=== PATIENT | male | born 2000 | race Caucasian/White ===

== ENCOUNTER 2019-03-28 22:17 | Inpatient (IN) ==
[2019-03-28] MEDS ORDERED: HYDROmorphone INJ 0.5 MG/0.5 ML SYR IV STA (22:31)
[2019-03-28] MEDS ORDERED: HYDROmorphone INJ 0.5 MG/0.5 ML SYR ONE (22:32)
[2019-03-28] MEDS ORDERED: PROPOFOL IV EMULSION 10 MG/ML 20 ML VIAL IV ONE (22:36)
[2019-03-28] MEDS ORDERED: KETAMINE HCL INJ 50 MG/ML 10 ML VIAL ONE (22:37)
[2019-03-28] MEDS ORDERED: KETAMINE HCL INJ 50 MG/ML 10 ML VIAL IV STA (22:37)
[2019-03-28] MEDS ORDERED: ONDANSETRON INJ 2 MG/ML 2 ML VIAL IV STA (22:37)
[2019-03-28] MEDS ORDERED: PROPOFOL IV EMULSION 10 MG/ML 20 ML VIAL IV STA (22:37)
--- NOTE | 2019-03-28 22:37 | Emergency Department Note ---
Pre Sedation Assessment Vital Signs Temp Pulse Resp BP Pulse Ox 03/28/19 22:25 37.4 C 83 18 135/92 97 Pre-Sedation Airway Assessment Smoking Status: Never smoker Notes The planned sedation has been discussed with the patient. Informed Consent was obtained. I have identified the patient, determined the appropriateness of sedation and have assessed the patient immediately prior to the procedure. All medicine(s) and interventions are by my order.
[2019-03-28 22:50] LABS: Basophils # (auto) 0.01 K/uL (0-0.2); Basophils % (auto) 0.1 %; Eosinophils # (auto) 0.04 K/uL (0-0.5); Eosinophils % (auto) 0.3 %; Hematocrit (blood only) 42.5 % (42-52); Hemoglobin 14.7 g/dL (14.0-18.0); Immature Granulocytes # (auto) 0.01 K/uL (0.00-0.02); Immature Granulocytes % (auto) 0.1 %; Lymphocytes # (auto) 2.01 K/uL (1.2-3.4); Lymphocytes % (auto) 16.5 %; Mean Corpuscular Hemoglobin 28.9 pg (25-34); Mean Corpuscular Hgb Conc 34.6 g/dL (32-36); Mean Corpuscular Volume 83.7 fL (80-100); Mean Platelet Volume 10.5 fL (7.4-10.4); Monocytes # (auto) 0.81 K/uL (0.11-0.59); Monocytes % (auto) 6.7 %; Neutrophils # (auto) 9.27 K/uL (1.4-6.5); Neutrophils % (auto) 76.3 %; Platelet Count 221 K/uL (130-400); RDW Coefficient of Variation 11.9 % (11.5-14.5); RDW Standard Deviation 36.6 fL (36.4-46.3); Red Blood Count 5.08 M/uL (4.7-6.1); White Blood Count 12.15 K/uL (4.8-10.8)
--- NOTE | 2019-03-28 22:57 | XRay Report ---
XR tibia fibula RT 2V CLINICAL HISTORY: Right leg pain status post trauma. COMPARISON: None. DISCUSSION: There is an acute transverse fracture of the tibia at the junction of the middle and dist al one third. The distal fragment is laterally displaced by one full shaft width. There is associated fracture of the fibula at the junction of middle and distal one third. The distal fragment is latera lly displaced by one full shaft width. On the lateral view, there is one half of the shaft width of p osterior displacement at the fracture sites. IMPRESSION: Displaced fractures of the tibia and fibula at the junction of the middle and distal one third. Electronically signed by: Paulino Dowd M.D. 03/28/2019 10:56 PM
[2019-03-28 23:01] LABS: INR 1.1 (0.9-1.1); Partial Thromboplastin Ratio 0.9; Partial Thromboplastin Time 23.4 Seconds (21.0-31.0); Prothrombin Time 11.6 Seconds (9.0-12.0)
[2019-03-28 23:08] LABS: BUN Creatinine Ratio 13.2 (10-20); Calcium 9.1 mg/dl (8.5-10.1); Creatinine Clr Calc Pharmacy 98.5 ml/min; Potassium 3.3 mmol/L (3.5-5.1)
--- NOTE | 2019-03-28 23:21 | History & Physical Report ---
Date of Service March 28, 2019 Assessment & Plan (1) Tibia/fibula fracture, shaft: Patient will be admitted for care. We will provide pain control as well as monitor for compartment syndromes. He has been splinted, After his closed reduction, while under conscious sedation. Surgical intervention recommended for stabilization of the fracture. His family is present today and agree to proceed with surgery. Risks and complications of the procedure were expanded the patient and include but not limited to infection, pain, bleeding, scarring, nerve and blood vessel damage, wound problems, weakness, stiffness, incomplete relief of symptoms, tendon or ligament injury, hardware failure, malunion, nonunion, arthritis, blood clots, embolism, heart attack, stroke and . Informed consent was obtained by Dr. Parry. He does not need any preoperative lab work or medical clearance prior to surgery. Plans for surgery tomorrow morning. He will then be discharged home when he is comfortable with pain control and safe out of bed with physical therapy. All questions were answered.He will be n.p.o. after midnight. I, Dr. Parry, saw and examined the patient and agree with the above findings and plan of care which was discussed with my PA. 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 Is a collision with another player and had immediate right lower leg pain. He was unable to get up and weight- bear. He was evaluated and concerns for right tib-fib fracture. Was brought to the emergency room. X-rays were taken he was found to have a displaced right tib-fib fracture. He was seen and evaluated by Dr. Parry. Surgical intervention was recommended. He had conscious sedation here in the emergency room and performed. A splint was applied under conscious sedation. He agrees to proceed with surgery and will be admitted overnight for pain control and monitoring for compartment syndrome. Allergies Allergy/AdvReac Type Severity Reaction Status Date / Time No Known Allergies Allergy Verified 03/28/19 22:31 Home Medications Home Medications Medication Instructions Recorded Confirmed Type No Known Home Medications 03/28/19 03/28/19 History Past Med/Surg History Social History Feels Safe at Home: Yes Smoking Status: Never smoker Hx Substance Use: No Review of Systems Review of Systems: All systems reviewed & are unremarkable except as noted in HPI & below Describes pain in his right lower extremity. Visible deformity. Denies any other injuries. Denies any numbness or tingling. Physical Exam Constitutional: WD/WN, vitals as above Eyes: PERRL, conjunctivae normal, anicteric sclerae ENMT: external ear and nose normal, oropharynx normal Neck: normal visual inspection Respiratory: normal respiratory effort, lungs clear to auscultation Cardiovascular: RRR, no murmur, no edema Heart Sounds: normal S1 and normal S2; no murmur Palpation: normal PMI Vessels: posterior tibial pulses present and dorsalis pedis pulses present Extremities: normal capillary refill Gastrointestinal (Abdomen): Inspection/Auscultation: abdomen normal to inspection and normal bowel sounds Percussion/Palpation: abdomen soft; abdomen nontender Musculoskeletal: Exam of his right lower extremity: Positive deformity right lower extremity. Skin intact. Moves toes well. Distal pulses and sensation normal. No effusion right knee, right thigh nontender, tolerates gentle log rolling of right hip. No other ROM attempted to due fracture and pain. Skin: no rashes, warm and dry Psychiatric: A+Ox3, euthymic affect Speech: normal rate/rhythm/volume of sp eech Results & Data Vital Signs (Past 12 Hours) Vital Signs Temp Pulse Pulse Resp BP BP Pulse Ox 03/28/19 23:02 81 18 140/97 03/28/19 22:58 75 22 165/92 H 100 03/28/19 22:55 70 16 160/97 H 03/28/19 22:50 70 20 148/98 H 03/28/19 22:45 93 H 20 127/103 H 03/28/19 22:25 37.4 C 83 18 135/92 97 Diagnostic Findings XR tibia fibula RT 2V CLINICAL HISTORY: Right leg pain status post trauma. COMPARISON: None. DISCUSSION: There is an acute transverse fracture of the tibia at the junction of the middle and distal one third. The distal fragment is laterally displaced by one full shaft width. There is associated fracture of the fibula at the junction of middle and distal one third. The distal fragment is laterally displaced by one full shaft width. On the lateral view, there is one half of the shaft width of posterior displacement at the fracture sites. IMPRESSION: Displaced fractures of the tibia and fibula at the junction of the middle and distal one third. Post reduction films: showed improved alignment of the right transverse tibial shaft fracture and the comminuted fibular shaft fracture in the AP and lateral views. Splint in place.
[2019-03-28] MEDS ORDERED: METOCLOPRAMIDE HCL INJ 5 MG/ML 2 ML VIAL IV PRN (23:23)
[2019-03-28] MEDS ORDERED: ONDANSETRON INJ 2 MG/ML 2 ML VIAL IV PRN (23:23)
--- NOTE | 2019-03-29 00:12 | Operative Report ---
Post Operative Report Pre & Post Diagnosis Closed Right Tib-fib fractures Procedure Closed reduction Right Tib Fib. 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 The risks and benefits of closed reduction vs splinting as is were discussed. Wished to proceed with closed reduction and informed consent was signed.. Description of Procedure After performing a time-out and adequate sedation was administered a closed reduction was performed with traction-counter traction and gentle manipulation. Once the reduction was felt to be made, a well padded AO splint was applied while maintaining the reduction. Post reduction films showed near anatomic reduction. After further discussion with the team physician, it was decided to admit the patient and plan for ORIF here tomorrow, rather than transporting home on the bus and having surgery in [place]. I attest to the content of the Intraoperative Record and any orders documented therein. Any exceptions are noted below.
[2019-03-29] MEDS: HYDROmorphone INJ 0.5 MG/0.5 ML SYR IV PRN ×6 (00:15→10:25)
--- NOTE | 2019-03-29 00:35 | Emergency Department Note ---
Post Sedation Assessment Vital Signs Temp Pulse Pulse Resp BP BP Pulse Ox 03/28/19 23:15 92 H 20 152/81 H 100 03/28/19 23:00 81 18 140/97 100 03/28/19 22:58 75 22 165/92 H 100 03/28/19 22:55 70 16 160/97 H 100 03/28/19 22:50 70 20 148/98 H 100 03/28/19 22:45 93 H 20 127/103 H 100 03/28/19 22:25 37.4 C 83 18 135/92 97 Recovery Score Activity: Moves 4 extremities Respiration: Deep Breath/Cough Circulation: +/-20% PreAnes Value Consciousness: Fully Awake Oxygen Saturation: > 92% On Room Air Post Anesthesia Score: 10 Post Sedation Plan On clinical assessment, the patient appears to have tolerated the sedation without complications. Patient is recovering as anticipated. Patient will continue to be monitored by nursing and may be discharged when sedation discharge criteria are met per below protocol. Upon Completions of procedure and additional 15 minutes continue every 5 minute vital signs and the P.A.R. score; then discharge to a Phase I or Fast Track to Phase II per the following guidelines: * Discharge Patient to appropriate Phase II area if PAR is 8 or greater or return to pre- procedure baseline. The post - procedure orders will be as directed. * If PAR score is less than 8 or not return to pre-procedure baseline then patient will follow Phase I monitoring till PAR is reached for Phase II. The Phase I may be done in procedure room or may call to secure a Phase I area. * If naloxone or flumazenil are used for reversal, hold in Phase I for continued monitoring from when last reversal dose was given for a minimum of 60 minutes or longer pending the nurse and/or physician discretion of patient condition before discharge to Phase II. Please call the Sedation Physician to re-evaluate and complete post-note for discharge to Phase II area. Do NOT discharge from procedure sedation or Phase 1 until post- sedation evaluation note is complete by procedure /sedation MD Sedation Discharge Instructions to be given to the patient at discharge to home. Sedation Data Sedation Times Sedation Start Date: 03/28/19 Sedation Start Time: 22:45 Sedation End Date: 03/28/19 Sedation End Time: 23:00 Total Sedation Time: 15 Procedure Times Procedure End Time: 22:58
--- NOTE | 2019-03-29 00:56 | Emergency Department Note ---
Entered by Jodi Aguirre acting as a scribe for History of Present Illness General Chief complaint: Ankle Pain Stated complaint: LEG INJURY Time Seen by Provider: 03/28/19 22:20 Source: patient and EMS History of Present Illness Provider complaint: lower extremity pain Onset (ago): minute(s) (prior to arrival) Location: lower extremity and right Pain Consistency: + constant Maximum Pain Intensity: 4 Quality: + other (lower extremity pain ) Relieved By: + medication Associated symptoms: + other (Negative neck pain; negative back pian; negative chest pain; negative abdominal pain; ); no chest pain The patient, who is a 19 year old male with no significant medical history, presents to the Emergency Room with complaints of a constant right lower extremity pain that occurred prior to arrival. EMS states that the patient was kicking during a football game when he landed "awkwardly" on his leg. The patient states that he is able to feel his toes. The patient denies headache, neck pain, back pain, chest pain or abdominal pain. The patient reports that he drank and ate waffles at half time. The patient denies any past surgical history. The patient expresses that he had laughing gas once when he was younger and had no complications with it. He was given IV fentanyl prior to arrival which improved his pain. Home Medications Home Medications Medication Instructions Recorded Confirmed Type No Known Home Medications 03/28/19 03/28/19 History Allergies Allergy/AdvReac Type Severity Reaction Status Date / Time No Known Allergies Allergy Verified 03/28/19 22:31 Past Med/Surg History Medical History No significant past medical history Social History Preferred Language: Hungarian Communication Ability: Effective Barrel Lathe Operator Required: No Beliefs That Will Affect Care: Scientology Scientology Beliefs: Druze Current Living Situation: Other Current Living Situation Comment: Patient lives on campus at [place] Other Information That Helps Us Care for You: No Feels Safe at Home: Yes Safety Concerns: Feels Safe At This Time Smoking Status: Never smoker Hx Alcohol Use: No Hx Substance Use: No Review of Systems See HPI for pertinent positives & negatives. and A total of 10 systems reviewed and were otherwise negative Physical Exam Vital Signs Vital Signs - 24 hr 03/28/19 22:25 03/28/19 22:45 03/28/19 22:50 Temperature 37.4 C Temperature Source Oral Sepsis Recent Fever Within 48 Hours No Sepsis Action Taken by Nursing No Action Required End-Tidal CO2 End Tidal CO2 (18-54mmHg) 22 26 Pulse Rate 83 93 H 70 Pulse Rate [Apical] Respiratory Rate 18 20 20 Respiratory Effort / Characteristics Non-Labored Spontaneous Non-Labored Spontaneous Non-Labored Spontaneous Respiratory Depth Normal Normal Normal Blood Pressure 135/92 Blood Pressure [Left Arm] 127/103 H 148/98 H Blood Pressure Mean 106 Blood Pressure Mean [Left Arm] Pulse Oximetry 97 100 100 Oxygen Delivery Method Room Air Non-rebreather Non-rebreather Oxygen Flow Rate 15 15 03/28/19 22:55 03/28/19 22:58 03/28/19 23:00 Temperature Temperature Source Sepsis Recent Fever Within 48 Hours Sepsis Action Taken by Nursing End-Tidal CO2 26 End Tidal CO2 (18-54mmHg) 38 32 Pulse Rate 70 75 Pulse Rate [Apical] 81 Respiratory Rate 16 22 18 Respiratory Effort / Characteristics Non-Labored Spontaneous Non-Labored Spontaneous Non-Labored Spontaneous Respiratory Depth Normal Normal Normal Blood Pressure Blood Pressure [Left Arm] 160/97 H 165/92 H 140/97 Blood Pressure Mean Blood Pressure Mean [Left Arm] 111 Pulse Oximetry 100 100 100 Oxygen Delivery Method Non-rebreather Non-rebreather Nasal Cannula Oxygen Flow Rate 15 15 4 03/28/19 23:15 Temperature Temperature Source Sepsis Recent Fever Within 48 Hours Sepsis Action Taken by Nursing End-Tidal CO2 18 End Tidal CO2 (18-54mmHg) Pulse Rate Pulse Rate [Apical] 92 H Respiratory Rate 20 Respiratory Effort / Characteristics Non-Labored Spontaneous Respiratory Depth Normal Blood Pressure Blood Pressure [Left Arm] 152/81 H Blood Pressure Mean Blood Pressure Mean [Left Arm] 104 Pulse Oximetry 100 Oxygen Delivery Method Room Air Oxygen Flow Rate Constitutional: Vital signs reviewed. Eyes: Pupils are equal round reactive to light. Conjunctiva are noninjected. ENT: Pharynx is clear without erythema or exudate. Mucous membranes are moist. Neck supple without meningeal signs. Respiratory: Clear to auscultation bilaterally. Breath sounds are equal bilaterally. Cardiovascular: Regular rate and rhythm. No rubs or gallops. GI: Soft, nondistended and nontender. Bowel sounds are present. Musculoskeletal: No peripheral edema. No midline tenderness to the cervical spine. Tenderness and swelling to the mid tibia. NVI distally. No hip tenderness. Integumentary: No cyanosis. Neurological: The patient is awake and alert. No focal deficits. Psychiatric: Tearful and anxious. Normal affect. Procedures Free Text Procedures Preparation for the sedation procedure included: blood tester, IV access, pulse oxymetry, ETCO2 monitor, oxygen, suction and ambu bag. Sedation was accomplished using Propofol 125mg and Ketamine 50mg IV. I provided anesthesia care for this patient for 15 minutes. Sql Data Analyst/Contact Lens Polisher: Dr. Georgette MD. Complication(s) during the procedure: None Mental status post procedure: Response to verbal stimuli - Appropriate Disposition See nurses record for monitoring/vital signs Alert prior to discharge Course 2220: Past medical records reviewed. The patient was evaluated in room B1. A complete history and physical exam was performed. 2243: I obtained inform consent from the patient for conscious sedation. The understands the risk of aspiration given he recently ate and drank. 2257: I put the patient under conscious sedation. 2317: I reviewed the patient's case with Dr. Adkins, [facility] Orthopedics. He will e valuate the patient for further management. 2334: I reassessed the patient who is awake and alert. His pain is controllable. Consultations Consultation #1: I reviewed the patient's case with Dr. Adkins, [facility] Orthopedics. He will evaluate the patient for further management. Time: 23:17 Administered Medications Hydromorphone HCl (Dilaudid) 0.5 - 1 mg IV Q2H PRN PRN Reason: Pain Stop: 04/11/19 23:27 Last Admin: 03/29/19 00:15 Dose: 0.5 mg Documented by: [id number] Discontinued Medications Hydromorphone HCl (Dilaudid) 0.5 mg IV NOW STA Stop: 03/28/19 22:32 Last Admin: 03/28/19 22:35 Dose: 0.5 mg Documented by: [id number] Hydromorphone HCl (Dilaudid) Confirm Administered Dose 0.5 mg .ROUTE .STK-MED ONE Stop: 03/28/19 22:33 Last Admin: 03/28/19 22:35 Dose: Not Given Documented by: [id number] Ketamine HCl (Ketalar Steri-Vial) Confirm Administered Dose 500 mg .ROUTE .STK- MED ONE Stop: 03/28/19 22:38 Last Admin: 03/28/19 23:22 Dose: Not Given Documented by: [id number] Ketamine HCl (Ketalar Steri-Vial) 50 mg IV NOW STA Stop: 03/28/19 22:38 Last Admin: 03/28/19 23:22 Dose: 50 mg Documented by: [id number] Ondansetron HCl (Zofran) 4 mg IV NOW STA Stop: 03/28/19 22:38 Last Admin: 03/29/19 00:31 Dose: Not Given Documented by: [id number] Propofol (Diprivan) Confirm Administered Dose 400 mg IV .STK-MED ONE Stop: 03/28/19 22:37 Last Admin: 03/28/19 23:22 Dose: 125 mg Documented by: [id number] Cosigned by: [id number] Propofol (Diprivan) 50 mg IV NOW STA Stop: 03/28/19 22:38 Last Admin: 03/28/19 23:22 Dose: Not Given Documented by: [id number] Medical Decision Making Differential Diagnosis Differential diagnosis includes: tibia fracture, fibular fracture, ankle dislocation, strain, contusion as well as others were concerned Medical Records Attestation: I reviewed the patient's medical records. The patient has no past medical records. Home Medications Current Medication List: was personally reviewed by me Laboratory Data Attestation: I reviewed the patient's lab results. Result diagrams: 03/28/19 22:30 03/28/19 22:30 Lab Results 03/28/19 03/28/19 03/28/19 Range/Units 22:30 22:30 22:30 WBC 12.15 H (4.8-10.8) K/uL RBC 5.08 (4.7-6.1) M/uL Hgb 14.7 (14.0-18.0) g/dL Hct 42.5 (42-52) % MCV 83.7 (80-100) fL MCH 28.9 (25-34) pg MCHC 34.6 (32-36) g/dL RDW Std Deviation 36.6 (36.4-46.3) fL RDW Coeff of Desiree 11.9 (11.5-14.5) % Plt Count 221 (130-400) K/uL MPV 10.5 H (7.4-10.4) fL Immature Gran % (Auto) 0.1 % Neut % (Auto) 76.3 % Lymph % (Auto) 16.5 % [place] % (Auto) 6.7 % Eos % (Auto) 0.3 % Baso % (Auto) 0.1 % Immature Gran # (Auto) 0.01 (0.00-0.02) K/uL Neut # (Auto) 9.27 H (1.4-6.5) K/uL Lymph # (Auto) 2.01 (1.2-3.4) K/uL [place] # (Auto) 0.81 H (0.11-0.59) K/uL Eos # (Auto) 0.04 (0-0.5) K/uL Baso # (Auto) 0.01 (0-0.2) K/uL PT 11.6 (9.0-12.0) Seconds INR 1.1 (0.9-1.1) APTT 23.4 (21.0-31.0) Seconds PTT Ratio 0.9 Sodium 140 (136-145) mmol/L Potassium 3.3 L (3.5-5.1) mmol/L Chloride 107 (98-107) mmol/L Carbon Dioxide 27 (21-32) mmol/L Anion Gap 5.0 (3-11) BUN 18 (7-18) mg/dl Creatinine 1.35 (0.6-1.4) mg/dl Est Cr Clr Drug Dosing 98.5 ml/min Est GFR ( Amer) 87.0 Est GFR (Non-Af Amer) 75.0 BUN/Creatinine Ratio 13.2 (10-20) Glucose 92 (70-99) mg/dl Calcium 9.1 (8.5-10.1) mg/dl Imaging Data Radiologist's Impression: Radiology results as stated below per my review and the radiologist's interpretation: XR tibia fibula RT 2V CLINICAL HISTORY: Right leg pain status post trauma. COMPARISON: None. DISCUSSION: There is an acute transverse fracture of the tibia at the junction of the middle and distal one third. The distal fragment is laterally displaced by one full shaft width. There is associated fracture of the fibula at the junction of middle and distal one third. The distal fragment is laterally displaced by one full shaft width. On the lateral view, there is one half of the shaft width of posterior displacement at the fracture sites. IMPRESSION: Displaced fractures of the tibia and fibula at the junction of the middle and distal one third. Electronically signed by: Paulino Dowd M.D. 03/28/2019 10:56 PM Blood Pressure Blood Pressure Findings: Normal blood pressure MDM Narrative I did evaluate the patient as noted above.The patient is visiting from [place] for a football game. 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 He denies any other significant injury. He appears to have a closed tib-fib fracture on examination. He is neurovascularly intact. The patient was placed on a continuous blood tester. I did treat him with IV Dilaudid 0.5 mg. I did order and personally reviewed the images of the patient's tib-fib x-ray as described above. He has a displaced right tib- fib fracture. I did order and review the patient's blood work as noted in the electronic medical record. His white count is elevated which is a nonspecific finding and likely secondary to the stress of the trauma. He has mild hypokalemia. Dr. Parry of orthopedics did see the patient with me concurrently. He wished to perform fracture reduction under conscious sedation. I did provide conscious sedation as noted above. I did obtained informed consent from the patient as well as his parents. He has not been n.p.o. for a significant amount of time but due to the emergent nature of the accident we went ahead with conscious sedation with the patient and parents understanding the risks of aspiration. The procedure was performed as noted above and postreduction x-ray shows significantly improved anatomic alignment per my interpretation. The patient was hospitalized by Dr. Parry for operative treatment. Impression & Plan Tibia/fibula fracture, shaft, Fall, Acute hypokalemia Discharge Plan Visit Data *Final* Discharge Date/Time: 03/29/19 00:15 Chief Complaint: Ankle Pain Stated Complaint: LEG INJURY ED Provider: Elias Palomino Discharge Problem: Tibia/fibula fracture, shaft, Fall, Acute hypokalemia Patient Disposition: Admitted As Inpatient Discharge Instructions Interventions: ED Discharge Assessment Last Done: 03/29/19 00:15 Discharge Problem: Tibia/fibula fracture, shaft Qualifiers: Encounter type: initial encounter Fracture type: closed Laterality: right Qualified Code(s): S82.201A - Unspecified fracture of shaft of right tibia, initial encounter for closed fracture Fall Qualifiers: Encounter type: initial encounter Qualified Code(s): W19.XXXA - Unspecified fall, initial encounter The scribe's documentation has been prepared under my direction and personally reviewed by me in its entirety. I confirm that the note above accurately reflects all work, treatment, procedures, and medical decision making performed by me.
[2019-03-29] MEDS: D5W AND 1/2NSS 1,000 ML IV SCH ×2 (01:10→16:26)
[2019-03-29] MEDS ORDERED: CEFAZOLIN 2000MG 2,000 MG/15 ML SYR IV SCH (06:00)
--- NOTE | 2019-03-29 07:49 | XRay Report ---
RIGHT ANKLE 2 VIEWS CLINICAL HISTORY: Postreduction examination. FINDINGS: AP and crosstable lateral views of the right ankle are obtained. Correlation is made with r adiographs performed earlier the same day 03/28/2019. The examination is performed through a cast, obsc uring fine bony detail. Again seen are horizontally oriented fractures through the mid to distal shaf t of the right tibia and fibula. Alignment is significantly improved status post closed reduction. Th ere is 9 mm of lateral offset of the distal tibial fragment. There is mild offset and overriding of t he fibular fragments. Overlying soft tissue edema is noted. The ankle joint appears intact. IMPRESSION: Improved alignment of tibial and fibular shaft fractures status post closed reduction. e above. Electronically signed by: Jr Godoy M.D. 03/29/2019 7:47 AM
--- NOTE | 2019-03-29 07:57 | Orthopedic Progress Note ---
Date of Service March 29, 2019 Assessment & Plan (1) Tibia/fibula fracture, shaft: Admitted late last night, Right Tib-fib fracture, doing as well as expected. NWB. NPO. Continue pain control. TEDs & foot pumps to LLE. Ice RLE. On the add-on list for planned ORIF Right Tib-fib later today. Subjective Right lower leg pain Review of Systems Review of Systems: No increase in pain or tingling. Physical Exam Physical Exam: RLE: Splint is intact. BCR<2 sec. Wiggling toes and able to extend big toe. Sensation to light touch remains slightly diminished. Results & Data Vital Signs (Past 12 Hours) Vital Signs Temp Pulse Pulse Pulse Resp BP BP 03/29/19 07:19 37.2 C 59 L 18 135/78 03/28/19 23:54 79 16 125/85 03/28/19 23:45 87 16 128/78 03/28/19 23:35 83 16 135/85 03/28/19 23:25 78 16 137/88 03/28/19 23:24 36.8 C 80 16 134/79 03/28/19 23:15 92 H 20 152/81 H 03/28/19 23:00 81 18 140/97 03/28/19 22:58 75 22 165/92 H 03/28/19 22:55 70 16 160/97 H 03/28/19 22:50 70 20 148/98 H 03/28/19 22:45 93 H 20 127/103 H 03/28/19 22:25 37.4 C 83 18 135/92 Pulse Ox 03/29/19 07:19 96 03/28/19 23:54 99 03/28/19 23:45 97 03/28/19 23:35 93 03/28/19 23:25 100 03/28/19 23:24 97 03/28/19 23:15 100 03/28/19 23:00 100 03/28/19 22:58 100 03/28/19 22:55 100 03/28/19 22:50 100 03/28/19 22:45 100 03/28/19 22:25 97 Laboratory Results 03/28/19 03/28/19 03/28/19 Range/Units 22:30 22:30 22:30 WBC 12.15 H (4.8-10.8) K/uL RBC 5.08 (4.7-6.1) M/uL Hgb 14.7 (14.0-18.0) g/dL Hct 42.5 (42-52) % MCV 83.7 (80-100) fL MCH 28.9 (25-34) pg MCHC 34.6 (32-36) g/dL RDW Std Deviation 36.6 (36.4-46.3) fL RDW Coeff of Desiree 11.9 (11.5-14.5) % Plt Count 221 (130-400) K/uL MPV 10.5 H (7.4-10.4) fL Immature Gran % (Auto) 0.1 % Neut % (Auto) 76.3 % Lymph % (Auto) 16.5 % [place] % (Auto) 6.7 % Eos % (Auto) 0.3 % Baso % (Auto) 0.1 % Immature Gran # (Auto) 0.01 (0.00-0.02) K/uL Neut # (Auto) 9.27 H (1.4-6.5) K/uL Lymph # (Auto) 2.01 (1.2-3.4) K/uL [place] # (Auto) 0.81 H (0.11-0.59) K/uL Eos # (Auto) 0.04 (0-0.5) K/uL Baso # (Auto) 0.01 (0-0.2) K/uL PT 11.6 (9.0-12.0) Seconds INR 1.1 (0.9-1.1) APTT 23.4 (21.0-31.0) Seconds PTT Ratio 0.9 Sodium 140 (136-145) mmol/L Potassium 3.3 L (3.5-5.1) mmol/L Chloride 107 (98-107) mmol/L Carbon Dioxide 27 (21-32) mmol/L Anion Gap 5.0 (3-11) BUN 18 (7-18) mg/dl Creatinine 1.35 (0.6-1.4) mg/dl Est Cr Clr Drug Dosing 98.5 ml/min Est GFR ( Amer) 87.0 Est GFR (Non-Af Amer) 75.0 BUN/Creatinine Ratio 13.2 (10-20) Glucose 92 (70-99) mg/dl Calcium 9.1 (8.5-10.1) mg/dl (1) Tibia/fibula fracture, shaft Encounter type: initial encounter Fracture type: closed Laterality: right Qualified Code(s): S82.201A - Unspecified fracture of shaft of right tibia, initial encounter for closed fracture; S82.401A - Unspecified fracture of shaft of right fibula, initial encounter for closed fracture
--- NOTE | 2019-03-29 08:44 | Anesthesiology Consultation ---
Date of Service March 29, 2019 Assessment & Plan (1) Encounter for pre-operative examination: Chart Review Chart Review: Acceptable Risk for Surgery and Patient NOT seen in Pre Admission Testing Consults Requested none History Surgery Operation Date: 03/29/19 07:00 Proposed Procedures p Intramedullary Nail Tibia(Right) - Gurjit Parry MD Height/Weight Height: 5 ft 11 in Weight: 89 kg Allergies Allergy/AdvReac Type Severity Reaction Status Date / Time No Known Allergies Allergy Verified 03/28/19 22:31 Medications Home Medications Medication Instructions Recorded Confirmed Last Taken No Known Home Medications 03/28/19 03/28/19 Unknown Active Medications Generic Name Dose Route Start Last Admin Trade Name Freq PRN Reason Stop Dose Admin Hydromorphone HCl 0.5 - 1 mg 03/28/19 23:28 03/29/19 08:06 Dilaudid IV 04/11/19 23:27 1 mg Q2H PRN Administration Pain Dextrose/Sodium Chloride 1,000 mls @ 75 mls/hr 03/28/19 23:30 03/29/19 01:10 D5w And 1/2nss IV 04/27/19 23:29 75 mls/hr .[id number] GILA Administration NPO Date Last Intake of Fluids: 03/29/19 Time Last Intake of Fluids: 00:15 Date Last Intake of Solids: 03/29/19 Time Last Intake of Solids: 00:15 Past Medical History Medical History No significant past medical history Social History Smoking Status: Never smoker Hx Alcohol Use: No Hx Substance Use: No substance use type: does not use Physical Exam Vital Signs Last Vital Signs Temp 37.2 C 03/29/19 07:19 Pulse 59 L 03/29/19 07:19 Resp 18 03/29/19 07:19 BP 135/78 03/29/19 07:19 Pulse Ox 96 03/29/19 07:19 Testing Laboratory Results 03/28/19 22:30 03/28/19 22:30 PT 11.6 Seconds (9.0-12.0) 03/28/19 22:30 INR 1.1 (0.9-1.1) 03/28/19 22:30 APTT 23.4 Seconds (21.0-31.0) 03/28/19 22:30
--- NOTE | 2019-03-29 10:59 | Anesthesiology Consultation ---
Date of Service March 29, 2019 Assessment & Plan (1) Encounter for pre-operative examination: Chart Review Chart Review: Acceptable Risk for Surgery and Patient NOT seen in Pre Admission Testing Consults Requested none ASA ASA1 History Surgery Operation Date: 03/29/19 07:00 Proposed Procedures p Intramedullary Nail Tibia(Right) - Gurjit Parry MD Height/Weight Height: 5 ft 11 in Weight: 89 kg Allergies Allergy/AdvReac Type Severity Reaction Status Date / Time No Known Allergies Allergy Verified 03/28/19 22:31 Medications Home Medications Medication Instructions Recorded Confirmed Last Taken No Known Home Medications 03/28/19 03/28/19 Unknown Active Medications Generic Name Dose Route Start Last Admin Trade Name Freq PRN Reason Stop Dose Admin Hydromorphone HCl 0.5 - 1 mg 03/28/19 23:28 03/29/19 10:25 Dilaudid IV 04/11/19 23:27 1 mg Q2H PRN Administration Pain Dextrose/Sodium Chloride 1,000 mls @ 75 mls/hr 03/28/19 23:30 03/29/19 01:10 D5w And 1/2nss IV 04/27/19 23:29 75 mls/hr .[id number] GILA Administration NPO Date Last Intake of Fluids: 03/28/19 Time Last Intake of Fluids: 22:30 Date Last Intake of Solids: 03/28/19 Time Last Intake of Solids: 22:30 Past Medical History Medical History No significant past medical history Social History Smoking Status: Never smoker Hx Alcohol Use: No Hx Substance Use: No substance use type: does not use Physical Exam Vital Signs Last Vital Signs Temp 37.2 C 03/29/19 07:19 Pulse 59 L 03/29/19 07:19 Resp 18 03/29/19 07:19 BP 135/78 03/29/19 07:19 Pulse Ox 96 03/29/19 07:19 Testing Laboratory Results 03/28/19 22:30 03/28/19 22:30 PT 11.6 Seconds (9.0-12.0) 03/28/19 22:30 INR 1.1 (0.9-1.1) 03/28/19 22:30 APTT 23.4 Seconds (21.0-31.0) 03/28/19 22:30
[2019-03-29] MEDS ORDERED: ePHEDrine sulfate 50 MG/ML AMP IV PRN (11:01)
[2019-03-29] MEDS ORDERED: ATROPINE SULFATE 0.1 MG/ML 10ML SYR IV PRN (11:01)
[2019-03-29] MEDS ORDERED: MIDAZOLAM HCL 1 MG/ML 2ML VIAL ONE (11:12)
[2019-03-29] MEDS ORDERED: DEXAMETHASONE SOD INJ 4 MG/ML VIAL ONE (11:12)
[2019-03-29] MEDS ORDERED: ROCURONIUM BROMIDE 10 MG/ML 5 ML VIAL ONE (11:12)
[2019-03-29] MEDS ORDERED: PROPOFOL IV EMULSION 10 MG/ML 20 ML VIAL IV ONE (11:12)
[2019-03-29] MEDS ORDERED: HYDROmorphone INJ 2 MG/ML SYR/VIAL ONE (11:12)
[2019-03-29] MEDS ORDERED: ONDANSETRON INJ 2 MG/ML 2 ML VIAL ONE ×2 (11:12→14:45)
[2019-03-29] MEDS ORDERED: LIDOCAINE/EPINEPHRINE 1% 20 ML VIAL ONE (12:12)
[2019-03-29] MEDS ORDERED: BUPIVACAINE 0.5 % 5 MG/1 ML MPF 30ML VIAL ONE (12:12)
[2019-03-29] MEDS ORDERED: DexMEDEtomidine HCL IV 100 MCG/ML VIAL ONE (12:27)
[2019-03-29] MEDS ORDERED: fentaNYL citrate 100 MCG/2 ML VIAL ONE ×2 (12:43→15:23)
[2019-03-29] MEDS ORDERED: NEOSTIGMINE METHYLSULFATE 5 MG/5 ML SYR ONE (13:31)
[2019-03-29] MEDS ORDERED: GLYCOPYRROLATE 0.2 MG/ML VIAL ONE ×2 (13:31→13:38)
--- NOTE | 2019-03-29 14:31 | Anesthesiology Progress Note ---
Date of Service March 29, 2019 Anesthesia Post Procedure Vital Signs Vital Signs: Temp Pulse Pulse Pulse Resp BP BP 03/29/19 07:19 37.2 C 59 L 18 135/78 03/28/19 23:54 79 16 125/85 03/28/19 23:45 87 16 128/78 03/28/19 23:35 83 16 135/85 03/28/19 23:25 78 16 137/88 03/28/19 23:24 36.8 C 80 16 134/79 03/28/19 23:15 92 H 20 152/81 H 03/28/19 23:00 81 18 140/97 03/28/19 22:58 75 22 165/92 H 03/28/19 22:55 70 16 160/97 H 03/28/19 22:50 70 20 148/98 H 03/28/19 22:45 93 H 20 127/103 H 03/28/19 22:25 37.4 C 83 18 135/92 Pulse Ox 03/29/19 07:19 96 03/28/19 23:54 99 03/28/19 23:45 97 03/28/19 23:35 93 03/28/19 23:25 100 03/28/19 23:24 97 03/28/19 23:15 100 03/28/19 23:00 100 03/28/19 22:58 100 03/28/19 22:55 100 03/28/19 22:50 100 03/28/19 22:45 100 03/28/19 22:25 97 Pain Intensity Right Lower Leg: Pain Intensity: 5 Transfer of Care Handoff Completed per policy Notes Mental Status: alert / awake / arousable Patient Amnestic to Procedure: Yes Nausea / Vomiting: adequately controlled Pain: adequately controlled Airway Patency, RR, SpO2: stable & adequate BP & HR: stable & adequate Hydration State: stable & adequate Anesthetic Complications: no major complications apparent and Pt Satisfied with anesthetic care
--- NOTE | 2019-03-29 14:54 | Operative Report ---
Post Operative Report Pre & Post Diagnosis Operation Date: 03/29/19 07:00 Pre-Op Diagnosis: RIGHT TIB/FIB FRACTURE Post-Op Diagnosis: RIGHT TIB/FIB FRACTURE Procedure Operation Date: 03/29/19 07:00 Actual Procedures p Intramedullary Nail Tibia(Right) - Gurjit Parry MD Surgeon Gurjit Parry M.D. Consulting Systems Engineer Taurus Cano MD & Ochoa Hitchcock PA-C Estimated Blood Loss 50 Findings Consistent with Post-Op Diagnosis Specimens None Anesthesia Type General Complications none Disposition Accompanied Patient To Recovery: Yes Disposition: Recovery Room Description of Procedure Patient was taken to the operating room, placed under general anesthesia. Given 2 gm IV Ancef for surgical prophylaxis. Time out performed, prepped and draped in routine sterile fashion. I was present during the entire case except for closure and assisted with exposure, reduction, implantation of hardware and dressings. Please see Dr. Parry's operative report for further detail. Patient was awakened and taken to the recovery room in stable condition. I attest to the content of the Intraoperative Record and any orders documented therein. Any exceptions are noted below.
--- NOTE | 2019-03-29 15:08 | Operative Report ---
Post Operative Report Pre & Post Diagnosis Operation Date: 03/29/19 07:00 Pre-Op Diagnosis: RIGHT TIB/FIB FRACTURE Post-Op Diagnosis: RIGHT TIB/FIB FRACTURE Procedure Operation Date: 03/29/19 07:00 Actual Procedures p Intramedullary Nail Tibia(Right) - Gurjit Parry MD Surgeon Gurjit Parry MD Digital Printer Operator Taurus Cano MD & Ochoa Hitchcock PA-C Estimated Blood Loss 50 Findings See Below Displaced and comminuted right mid-distal 1/3 Tib-fib fractures. Fluids 1500 cc Specimens n/a Drains n/a Anesthesia Type General Complications none Indications The patient is 19year old male who sustained a right tibia fracture while playing football last evening. The patients treatment options of conservative versus surgical intervention were discussed. I recommended surgery. The patient understands the risks of surgery, which include but are not limited to: bleeding, infection, re-operation, damage to nerves and arteries, continued pain, failure of the hardware, mal-union, non-union, DVT, and . The patient understands all of these instructions and explanations, all of their questions have been satisfactorily addressed. The patient has elected to proceed with surgery and the informed consent was signed. Description of Procedure IMPLANTS: 1. Synthes 10 mm x 375 mm Tibial Nail. 2. 5 mm x(40 & 46 mm) proximal Locking screw. 3. 5 mm x (36, 40, & 46 mm) distal locking screws. 4. Standard 5 mm titanium end cap. PROCEDURE: The patient was taken to the Operating Room and placed in the lateral position on the radiolucent spine table after general anesthesia was administered. A multidisciplinary time-out was performed identifying my initials on the right lower limb as the correct and operative limb. Prior to the incision being made, 2 grams of intravenous Ancef were given. Fluoroscopy was brought in to ensure adequate x-rays images could be obtained. The right lower extremity was prepped in the standard fashion. The planned anterior knee incision was marked. This incision and the stab incisions for the locking screws were injected with a 50:50 mixture of 1% Lidocaine with epi and 0.5% Bupivacaine plain for a total of 15 cc. The planned anterior incision was made and carried down through the peritenon. The peritenon was split exposing the patellar tendon and was elevated to expose patellar tendon, which was split to gain the starting point. Fluoroscopy was used to find the starting point. A starting guide wire was placed and the starting reamer was used to create the entry hole. While reducing the fracture with manual traction and posterior pressure along the proximal fragment, the long guide wire was then placed across the fracture into the distal fragment down to the distal tibial physeal scar centrally in both the AP and lateral projections. The tibial canal was then sequentially reamed from an 8.5 up to a 11 mm reamer. A size 10 mm implant was selected. The implant was then inserted without difficulty. The distal locking screws, 2 medial to lateral and one in the AP direction, were placed with perfect [place] technique. Then using the slap hammer compression of the fragments was obtained. Small incisions were made for placement of the proximal locking screws, which were placed using the aiming guide. Additional compression was obtained by compression maricel of the dynamic screw prior to placing the locking proximal screw. An end cap was then placed in the standard fashion. Final x-rays were obtained showing near anatomic alignment of the tibial shaft fracture and the proximal fibular fracture was back out to length. The wounds were copiously irrigated. The Patellar tendon was closed with 2-0 Vicryl. The peritenon was closed with 2-0 Vicryl. The subcutaneous tissue was closed with 3-0 Vicryl. The anterior incision was closed with Zipline. The small stab incisions were closed with willis. The stab incisions were covered with Xeroform, 4x4s, ABD, sterile c ast padding, and an AO splint was placed. The alignment of the lower leg was the same as the non-operative side. The patient was transfer to the hospital bed and taken to the ICU acting as the PACU in stable condition. The sponge and needle counts were correct. Post-op Instructions: The patient was re-admitted. The patient will be NWB. The patient will be seen by PT. DVT prophylaxis will be with mechanical devices and ASA. I attest to the content of the Intraoperative Record and any orders documented therein. Any exceptions are noted below.
--- NOTE | 2019-03-29 15:08 | Post Operative Brief Note ---
Immediate Post Op Note v1 Date of Surgery March 29, 2019 Pre & Post Diagnosis Operation Date: 03/29/19 07:00 Pre-Op Diagnosis: RIGHT TIB/FIB FRACTURE Post-Op Diagnosis: RIGHT TIB/FIB FRACTURE Procedure Operation Date: 03/29/19 07:00 Actual Procedures p Intramedullary Nail Tibia(Right) - Gurjit Parry MD Surgeon Gurjit Parry MD Compressor Battery Pellets Taurus Cano MD & Ochoa Hitchcock PA-C Estimated Blood Loss 50 Findings Consistent with Post-Op Diagnosis Fluids 1500 cc Anesthesia Type General Complications none
[2019-03-29] MEDS ORDERED: KETOROLAC 30 MG/ML VIAL ONE (15:23)
--- NOTE | 2019-03-29 15:34 | Operative Report ---
Post Operative Report Pre & Post Diagnosis Operation Date: 03/29/19 07:00 Pre-Op Diagnosis: RIGHT TIB/FIB FRACTURE Post-Op Diagnosis: RIGHT TIB/FIB FRACTURE Procedure Operation Date: 03/29/19 07:00 Actual Procedures p Intramedullary Nail Tibia(Right) - Gurjit Paryr MD Surgeon Gurjit Parry MD Mold Cutting Machine Operator Taurus Cano MD & Ochoa Hitchcock PA-C Estimated Blood Loss 50 Findings Consistent with Post-Op Diagnosis Specimens None Complications none Disposition Accompanied Patient To Recovery: Yes Disposition: Recovery Room Indications Displaced tibia and fibula fractures of R leg Description of Procedure Supine, standard prep and drape, time out and closed [place] nail with 375x10 mm static locking. Please see Dr Parry's Op notes for specific details. I was present throughout the case, assisted for wound closure, splint application and transferred the patient to PACU in stable condition I attest to the content of the Intraoperative Record and any orders documented therein. Any exceptions are noted below.
[2019-03-29] MEDS: HYDROmorphone INJ 2 MG/ML SYR/VIAL IV PRN ×2 (15:35→15:40)
[2019-03-29] MEDS ORDERED: HYDROmorphone INJ 1 MG/ML SYRINGE ONE (15:36)
--- NOTE | 2019-03-29 15:55 | Anesthesiology Progress Note ---
Date of Service March 29, 2019 Anesthesia Post Procedure Vital Signs Vital Signs: Temp Pulse Pulse Pulse Resp BP BP 03/29/19 15:50 67 16 03/29/19 15:40 72 16 03/29/19 15:30 53 L 16 03/29/19 15:24 37.2 C 71 16 03/29/19 07:19 37.2 C 59 L 18 135/78 03/28/19 23:54 79 16 125/85 03/28/19 23:45 87 16 128/78 03/28/19 23:35 83 16 135/85 03/28/19 23:25 78 16 137/88 03/28/19 23:24 36.8 C 80 16 134/79 03/28/19 23:15 92 H 20 152/81 H 03/28/19 23:00 81 18 140/97 03/28/19 22:58 75 22 165/92 H 03/28/19 22:55 70 16 160/97 H 03/28/19 22:50 70 20 148/98 H 03/28/19 22:45 93 H 20 127/103 H 03/28/19 22:25 37.4 C 83 18 135/92 BP Pulse Ox 03/29/19 15:50 120/61 96 03/29/19 15:40 115/62 96 03/29/19 15:30 117/66 100 03/29/19 15:24 133/78 99 03/29/19 07:19 96 03/28/19 23:54 99 03/28/19 23:45 97 03/28/19 23:35 93 03/28/19 23:25 100 03/28/19 23:24 97 03/28/19 23:15 100 03/28/19 23:00 100 03/28/19 22:58 100 03/28/19 22:55 100 03/28/19 22:50 100 03/28/19 22:45 100 03/28/19 22:25 97 Pain Intensity Right Lower Leg: Pain Intensity: 5 Transfer of Care Handoff Completed per policy Notes Mental Status: alert / awake / arousable Patient Amnestic to Procedure: Yes Nausea / Vomiting: adequately controlled Pain: adequately controlled Airway Patency, RR, SpO2: stable & adequate BP & HR: stable & adequate Hydration State: stable & adequate Anesthetic Complications: no major complications apparent and Pt Satisfied with anesthetic care
[2019-03-29] MEDS ORDERED: MAGNESIUM HYDROXIDE SUSP 30 ML UDC PO PRN (16:21)
[2019-03-29] MEDS ORDERED: NALOXONE HCL 0.4 MG/1 ML VIAL/CARP IV PRN (16:21)
[2019-03-29] MEDS ORDERED: BISACODYL 10 MG SUPP PR PRN (16:21)
[2019-03-29] MEDS ORDERED: OXYCODONE HCL IR 5 MG TAB (IMMEDIATE RELEASE) PO PRN (16:21)
[2019-03-29] MEDS ORDERED: TAMSULOSIN HCL 0.4 MG CAP PO PRN (16:21)
[2019-03-29] MEDS ORDERED: DiphenhydrAMINE HCL 50 MG/ML VIAL IV PRN (16:21)
[2019-03-29] MEDS ORDERED: SODIUM CHLORIDE 0.9% 1000ML 1,000 ML IV SCH (16:21)
--- NOTE | 2019-03-29 17:40 | Fluoroscopy Report ---
INTRAOPERATIVE RADIOGRAPHS CLINICAL HISTORY: Open reduction and internal fixation of the right tibia. Fluoroscopy time 3 minutes 14 seconds. FINDINGS: 6 spot fluoroscopic views of the right tibia and fibula are correlated with radiographs per formed 03/28/2019. An intramedullary nail has been placed transfixing a distal tibial fracture. Near-an atomic alignment is restored. There are 2 cortical lag screws transfixing the proximal and distal end s of the nail. A distracted and mildly overriding fibular shaft fracture is again seen. Soft tissue e adam is noted. IMPRESSION: Intraoperative images from open reduction and internal fixation of the right tibia as abo ve. Electronically signed by: Jr Godoy M.D. 03/29/2019 5:38 PM
--- NOTE | 2019-03-29 19:20 | Orthopedic Progress Note ---
Date of Service March 29, 2019 Assessment & Plan (1) Tibia/fibula fracture, shaft: POD#0 s/p IM rodding Right Tibia, doing as well as expected. NWB. Regular diet. Continue pain control. TEDs & foot pumps to LLE. Ice RLE. check labs in am. PT. Subjective feeling sleepy Review of Systems Review of Systems: No increase in pain or tingling. Physical Exam Physical Exam: RLE: Splint Clean, dry, intact. Wiggling toes up & down. Sensation to Light Touch unchanged, slightly diminished. BCR<2. Results & Data Vital Signs (Past 12 Hours) Vital Signs Temp Pulse Pulse Resp BP BP Pulse Ox 03/29/19 18:05 36.8 C 53 L 17 109/65 96 03/29/19 17:15 37 C 60 16 117/73 95 03/29/19 16:45 36.6 C 66 16 117/69 96 03/29/19 16:15 37 C 70 16 125/75 97 03/29/19 16:01 36.9 C 61 14 122/64 98 03/29/19 15:50 67 16 120/61 96 03/29/19 15:40 72 16 115/62 96 03/29/19 15:30 53 L 16 117/66 100 03/29/19 15:24 37.2 C 71 16 133/78 99 03/29/19 07:19 37.2 C 59 L 18 135/78 96 (1) Tibia/fibula fracture, shaft Encounter type: initial encounter Fracture type: closed Laterality: right Qualified Code(s): S82.201A - Unspecified fracture of shaft of right tibia, initial encounter for closed fracture; S82.401A - Unspecified fracture of shaft of right fibula, initial encounter for closed fracture
[2019-03-29] MEDS: ACETAMINOPHEN 500 MG TAB PO SCH (21:08)
[2019-03-29] MEDS: ASPIRIN 81 MG ECTAB PO SCH (21:08)
[2019-03-29] MEDS: SENNA 8.6 MG TAB PO SCH (21:08)
[2019-03-29] MEDS: DOCUSATE SODIUM 100 MG CAP PO SCH (21:08)
[2019-03-30 05:25] LABS: Hematocrit (blood only) 36.5 % (42-52); Mean Corpuscular Hemoglobin 28.1 pg (25-34); Mean Corpuscular Hgb Conc 32.9 g/dL (32-36); Mean Corpuscular Volume 85.5 fL (80-100); Mean Platelet Volume 10.2 fL (7.4-10.4); Platelet Count 168 K/uL (130-400); RDW Coefficient of Variation 12.1 % (11.5-14.5); RDW Standard Deviation 37.5 fL (36.4-46.3); Red Blood Count 4.27 M/uL (4.7-6.1)
[2019-03-30 06:00] LABS: Est GFR (African American) 115.2; Est GFR (Non-African American) 99.4; Potassium 4.1 mmol/L (3.5-5.1)
[2019-03-30 06:01] LABS: BUN Creatinine Ratio 14.9 (10-20); Calcium 8.2 mg/dl (8.5-10.1); Creatinine Clr Calc Pharmacy 117.3 ml/min
[2019-03-30] MEDS: ACETAMINOPHEN 500 MG TAB PO SCH ×3 (06:11→20:56)
[2019-03-30] MEDS: DOCUSATE SODIUM 100 MG CAP PO SCH ×2 (08:45→20:56)
[2019-03-30] MEDS: KETOROLAC 30 MG/ML VIAL IV PRN ×2 (08:45→18:37)
[2019-03-30] MEDS: ASPIRIN 81 MG ECTAB PO SCH ×2 (09:07→20:56)
--- NOTE | 2019-03-30 10:48 | Orthopedic Progress Note ---
Date of Service March 30, 2019 Assessment & Plan (1) Tibia/fibula fracture, shaft: POD#0 s/p IM rodding Right Tibia, doing as well as expected. NWB. Regular diet. Continue pain control. TEDs & foot pumps to LLE. Ice RLE. Allowed to wash hair and shower. PT. We will continue to monitor his symptoms and to ensure that compartment syndrome does not develop. We will continue to monitor the upper extremity symptoms, these are likely related to position and or blood pressure cuff during surgery. Once he is at home if his symptoms continue to persist, this could be worked up further and consideration for nighttime cockup wrist splint. Will reevaluate for possible discharge home. Subjective Pain in right leg improving. Right hand numbness since after surgery. Review of Systems Review of Systems: All systems reviewed & are unremarkable except as noted in HPI & below Physical Exam Physical Exam: RLE: Splint clean, dry, intact. Wiggling toes up and down. Sensation to light touch improving. BCR<2 sec. RUE: Motor to Median, ulnar, radial, AIN, and PIN are intact. The BCR <2 seconds. Decreased sensation approximately 50% in the median 3-1/2 digits. - Tinel's in the carpal tunnel. Results & Data Vital Signs (Past 12 Hours) Vital Signs Temp Pulse Resp BP Pulse Ox 03/30/19 07:32 36.8 C 77 16 107/57 L 95 03/30/19 04:21 37.0 C 66 15 121/64 96 03/29/19 23:28 37.1 C 75 15 129/62 95 Laboratory Results 03/30/19 03/30/19 Range/Units 05:07 05:07 WBC 10.50 (4.8-10.8) K/uL RBC 4.27 L (4.7-6.1) M/uL Hgb 12.0 L (14.0-18.0) g/dL Hct 36.5 L (42-52) % MCV 85.5 (80-100) fL MCH 28.1 (25-34) pg MCHC 32.9 (32-36) g/dL RDW Std Deviation 37.5 (36.4-46.3) fL RDW Coeff of Desiree 12.1 (11.5-14.5) % Plt Count 168 (130-400) K/uL MPV 10.2 (7.4-10.4) fL Sodium 141 (136-145) mmol/L Potassium 4.1 D (3.5-5.1) mmol/L Chloride 107 (98-107) mmol/L Carbon Dioxide 29 (21-32) mmol/L Anion Gap 5.0 (3-11) BUN 16 (7-18) mg/dl Creatinine 1.07 (0.6-1.4) mg/dl Est Cr Clr Drug Dosing 117.3 ml/min Est GFR ( Amer) 115.2 Est GFR (Non-Af Amer) 99.4 BUN/Creatinine Ratio 14.9 (10-20) Glucose 95 (70-99) mg/dl Calcium 8.2 L (8.5-10.1) mg/dl (1) Tibia/fibula fracture, shaft Encounter type: initial encounter Fracture type: closed Laterality: right Qualified Code(s): S82.201A - Unspecified fracture of shaft of right tibia, initial encounter for closed fracture; S82.401A - Unspecified fracture of shaft of right fibula, initial encounter for closed fracture
[2019-03-30] MEDS: SENNA 8.6 MG TAB PO SCH (20:56)
[2019-03-31] MEDS: ACETAMINOPHEN 500 MG TAB PO SCH (05:28)
--- NOTE | 2019-03-31 08:08 | Orthopedic Progress Note ---
Date of Service March 31, 2019 Assessment & Plan (1) Tibia/fibula fracture, shaft: POD#2 s/p IM rodding Right Tibia, doing as well as expected. NWB. Regular diet. Continue pain control. TEDs & foot pumps to LLE while in hospital. Ice & elevate RLE. Allowed to wash hair and shower. PT. We will continue to monitor the upper extremity symptoms, these are likely related to position and or blood pressure cuff during surgery. Once he is at home if his symptoms continue to persist, this could be worked up further and consideration for nighttime cockup wrist splint.--Symptoms much improved today. Discharge home later today with follow-up with team Orthopedist, Dr. Harding, this week Give home pack pain meds for ride home.. Subjective Overall feeling better. Review of Systems Review of Systems: All systems reviewed & are unremarkable except as noted in HPI & below Improved sensation in RUE. Physical Exam Physical Exam: RLE: Splint C/D/I. Wiggling toes up & down. BCR < 2 sec. Calf soft, NT. Sensation to light touch unchanged from initial eval with ~ 20% decrease from opposite side. RUE: 2+ Radial pulse. Sensation to LT improved and now ~ 95% of opposite side. Motor to M/R/U/AIN/PIN intact. Results & Data Vital Signs (Past 12 Hours) Vital Signs Temp Pulse Resp BP BP Pulse Ox 03/31/19 06:51 36.6 C 62 16 137/66 96 03/30/19 23:20 36.8 C 51 L 16 123/71 97 (1) Tibia/fibula fracture, shaft Encounter type: initial encounter Fracture type: closed Laterality: right Qualified Code(s): S82.201A - Unspecified fracture of shaft of right tibia, initial encounter for closed fracture; S82.401A - Unspecified fracture of shaft of right fibula, initial encounter for closed fracture
[2019-03-31] MEDS: DOCUSATE SODIUM 100 MG CAP PO SCH (08:30)
[2019-03-31] MEDS: ASPIRIN 81 MG ECTAB PO SCH (08:30)
[2019-03-31] MEDS: KETOROLAC 30 MG/ML VIAL IV PRN (10:17)
--- NOTE | 2019-03-31 10:22 | Discharge Summary ---
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 He was playing in a football game on 03-28-19. He had a collision with another player and had immediate right lower leg pain. He was unable to get up and weight- bear. He was evaluated and concerns for right tib-fib fracture. Was brought to the emergency room. X-rays were taken he was found to have a displaced right tib-fib fracture. He was seen and evaluated by Dr. Parry. Surgical intervention was recommended. He had conscious sedation in the emergency room and a splint was applied. He agreed to proceed with surgery and was admitted overnight for pain control and monitoring for compartment syndrome. Principal Diagnosis Closed Right Tib-Fib Fracture Discharge Data Allergies Allergy/AdvReac Type Severity Reaction Status Date / Time No Known Allergies Allergy Verified 03/28/19 22:31 Consultations 03/29/19 16:21 Consult Case Management - Discharge Planning Routine 03/31/19 07:41 Burn CD for patient Routine Procedures Performed Operation Date: 03/29/19 07:00 Actual Procedures p Intramedullary Nail Tibia(Right) - Gurjit Sherrie Parry MD Ordered Studies 03/29/19 12:00 FL fluoroscopy <1hr Routine FL tibia/fibula RT 2V Routine Hospital Course (1) Tibia/fibula fracture, shaft: The patient is 19year old male who sustained a right tibia fracture while playing football on 03-28-19. The patients treatment options of conservative versus surgical intervention were discussed. Dr Parry recommended surgery. The patient understands the risks of surgery, which include but are not limited to: bleeding, infection, re-operation, damage to nerves and arteries, continued pain, failure of the hardware, mal-union, non-union, DVT, and . The patient understands all of these instructions and explanations, all of their questions have been satisfactorily addressed. The patient elected to proceed with surgery and the informed consent was signed. He was admitted to hospital for observation of compartment syndrom and pain control and NPO for planned surgery in AM. On 03-29-19 patient underwent IM rodding Right Tibia. Tolerated surgery without complications. Re-admitted to floor. POD 1 Hgb 12.1. Tolerating regular diet, pain controlled with IV toradol and tylenol. Using ice and elevating right leg. Able to nonweightbear right leg with walker. No issues with bowel or bladder. Using foot pumps and TEDS LLE for DVT prophylaxis. Noted some right hand decreased sensation in medial nerve distrubution. Denied neck pain or radiating pain. Negative spurlings. Tinels at wrist was negative. Recommended observation. POD 2 Continued to improve as expected. Was deemed stable for discharge to home. To keep splint on, clean, and dry. Discharged with tylenol and norco (to use only for severe pain if needed) as needed for pain. Motrin 600mg 3xs a day with food for 2wks then as needed for DVT prophylaxis, pain, and swelling. Nonweightbearing right leg with walker. Instructed on HEP until he sees his team software trainer/physician. Will continue with ice and elevation. Recommend continued use of TEDS to LLE and for 2wks and consider for RLE once changed to boot or as deemed necessary by team physician for DVT prophylaxis. Recommend continued monitoring of his right upper extremity symptoms, these are likely related to position and or blood pressure cuff during surgery. Once he is at home if his symptoms continue to persist, this could be worked up further and consideration for nighttime cockup wrist splint.--Symptoms much improved today. Recommend he follow-up with his team physician this week. Advised to call Dr Jaime office at [phone] with any further questions or concerns. Total Time Total Time Spent Total Time Spent (In Minutes): 20 Discharge Plan Discharge Items Patient Disposition: Home - Self-Care Reason For Visit: RIGHT TIB/FIB FRACTURE Discharge Diagnosis: Right tib/fib fracture Condition: Good Discharge Goals: Decrease discomfort, Improve function and Therapeutic intervention Activity: Per Instructions section Lifting: None Lifting Comment: to right leg Bathing: Keep incision dry Bathing Comment: keep splint on, clean, dry Exercise Comment: per your software trainer and team physician Driving/Machine Use Comment: no driving until cleared by your team physician Weightbearing: Right non-weightbearing Weightbearing Comment: lower extremity Non-emergency contact: Surgeon Call non-emergency contact if: your symptoms worsen, your pain is not controlled, your pain is worsening, your temperature is above 101, your wound has increased redness and your wound has increased drainage Follow-up/Referrals: PCP,NO [Physician] - Diet: Regular Addtl Provider Instructions: DIET: * Resume previous diet. MEDICATIONS: * Please take your prescriptions as instructed or see medication discharge instructions listed above. * If concerns develop, call your physician's office at . SPECIAL CARE INSTRUCTIONS: * Ice to right lower extremity/fracture site for 20-30 minutes every 2-3 hours as needed for pain. * Elevate right lower extremity above your heart to relieve pain/swelling. * Do not put weight on your right leg. * Use crutches to assist with ambulation. * Allowed for range of motion to right knee and toes right foot. * Do exercises as instructed by the therapist. Quad sets, leg lifts, but squeezes multiple times/day. * Keep splint on at all times. Keep clean and dry. Allowed to loosen and re- wrap DOC bandages as needed for comfort. * Your surgical extremity may be discolored due to prepping agents used on the skin. A bluish-green tint is a normal variant and should not cause alarm. Call your doctor at [phone] ( Dr Parry's office) or your team physician * Temperature above 101.5 degrees * Pain not relieved by pain medicine ordered * There is increased drainage or redness from any incision * You have any unanswered questions, problems or concerns. FOLLOW UP VISIT: * Please call Dr. Gurjit Parry's office at with any questions regarding your care. * Follow up as instructed by your software trainer/team physician. NEW MEDICATIONS tylenol 1000mg every 6-8hrs as needed for pain motrin 600mg every 6-8hrs for pain, swelling, and prevention of blood clots for 2wks then as needed norco (narcotic) for severe pain not controlled by above Prescriptions: New acetaminophen [Tylenol Extra Strength] 500 mg Tablet 1,000 mg PO Q8 Qty: 60 RF: 0 ibuprofen 600 mg tablet 600 mg PO TID Qty: 60 RF: 1 hydrocodone-acetaminophen [[place]] 5-325 mg tablet 1 tab PO Q6H PRN (Reason: pain) Qty: 10 RF: 0 Stand-Alone Forms: [facility] Discharge Orders: Discharge Order (Routine); Ordered 03/31/19 Ordered By: Lucrecia Gutierrez Admission Data Admit Date/Time: 03/28/19 23:24 Attending Provider: Gurjit Parry Admit Provider: Gurjit Parry Primary Care Provider: Avery Harding Service: Surgical Services Other Interventions: Discharge Summary Assessment (RN) Last Done: 03/31/19 10:01
== END 2019-03-31 11:50 | disposition home or self-care (01) | DRG 494 ==
LOC: ED 22:17 → 3N 23:24